=== PATIENT | female | born 1970 | race Hispanic/Latino ===

== ENCOUNTER 2019-11-03 10:14 | Emergency (ER) | payer OTHER | END 2019-11-03 10:33 | disposition home or self-care (01) | LOC: EDH 10:14 | DX: J02.9 Acute pharyngitis, unspecified (principal); E11.9 Type 2 diabetes mellitus without complications; I10 Essential (primary) hypertension; Z59.0 Homelessness ==

== ENCOUNTER 2020-04-01 22:16 | Emergency (ER) | payer SELFPAY ==
[~2020-04-01 22:16] MED LIST: 0.9% SODIUM CHLORIDE 1000 ML IV BAG IV ONE; INSULIN HUMULIN R 100 UNIT/ML 3ML ONE
== END 2020-04-01 23:50 | disposition home or self-care (01) ==
LOC: EDH 22:16
DX: E11.65 Type 2 diabetes mellitus with hyperglycemia (principal); I10 Essential (primary) hypertension
CPT/HCPCS: 82948 ×2; 96361; 96374; 99283; J1815; J7030